=== PATIENT | male | born 1955 | race Native Hawaiian/Other Pacific Islander ===

== ENCOUNTER 2017-02-23 15:51 | Outpatient (CLI) | payer BC | END 2017-02-23 19:25 | disposition home or self-care (01) | LOC: LABW 15:51 | DX: Z79.01 Long term (current) use of anticoagulants (principal); Z51.81 Encounter for therapeutic drug level monitoring | CPT/HCPCS: 85002 ==

== ENCOUNTER 2018-11-18 10:05 | Outpatient (CLI) | payer BC | END 2018-11-18 22:23 | disposition home or self-care (01) | LOC: MRI 10:05 | DX: M25.511 Pain in right shoulder (principal); M25.512 Pain in left shoulder; M75.01 Adhesive capsulitis of right shoulder; M75.02 Adhesive capsulitis of left shoulder; M75.121 Complete rotator cuff tear or rupture of right shoulder, not specified as traumatic ==

== ENCOUNTER 2019-03-19 20:48 | Emergency (ER) | payer BC ==
[~2019-03-19] VITALS: Ht 188 cm; Wt 109.8 kg
[2019-03-19] MEDS ORDERED: OMEPRAZOLE20 M1 PO (20:56)
[2019-03-19] MEDS ORDERED: INVOKANA300 MG PO (20:57)
[2019-03-19] MEDS ORDERED: FORTAMET1000 MG PO (20:57)
[2019-03-19] MEDS ORDERED: KP FOLIC ACID1 MG PO (20:58)
[2019-03-19] MEDS ORDERED: LIPITOR20 MG PO (20:58)
[2019-03-19] MEDS ORDERED: LISI5TAB10 PO (20:59)
[2019-03-19] MEDS ORDERED: ASA LOW DOSE81 MG PO (20:59)
[2019-03-19] MEDS ORDERED: VITAMIN B-121000 MC2 PO (21:00)
[2019-03-19 22:28] VITALS: BP 143/82; TEMP 98.3
== END 2019-03-19 22:28 | disposition home or self-care (01) ==
LOC: ED 20:48
PROC: 0HQ0XZZ Repair Scalp Skin, External Approach (ICD-10-PCS; principal; 2019-03-19)
DX: S01.01XA Laceration without foreign body of scalp, initial encounter (principal); W22.8XXA Striking against or struck by other objects, initial encounter; Y92.89 Other specified places as the place of occurrence of the external cause
CPT/HCPCS: 90471; 90715; 99283; J7040

== ENCOUNTER 2022-10-10 08:22 | Outpatient (CLI) | payer OTHER ==
[~2022-10-10 08:22] MED LIST: ASA LOW DOSE81 MG PO; FORTAMET1000 MG PO; INVOKANA300 MG PO; KP FOLIC ACID1 MG PO; LIPITOR20 MG PO; LISI5TAB10 PO; OMEPRAZOLE20 M1 PO; VITAMIN B-121000 MC2 PO
== END 2022-10-10 23:33 | disposition home or self-care (01) ==
LOC: MRI 08:22
PROVIDERS: ATTEND Anesthesiology Pain Medicine
DX: M54.16 Radiculopathy, lumbar region (principal); M54.12 Radiculopathy, cervical region